=== PATIENT | male | born 1965 | race Caucasian/White ===

== ENCOUNTER → 2018-03-05 15:18 | Outpatient (CLI) | payer BC, MEDICAID ==
--- NOTE | ~2018-03-05 | ST ---
PATIENT:LISA ALFARO MEDICAL RECORD: [id number] SEX: M LOCATION:[facility] ORDER #: ADMISSION DATE: 03/05/18 AGE OF PATIENT: 53 REFERRING PHYSICIAN: INTERPRETING PHYSICIAN: FELIX MESSINA MD DATE OF SERVICE: 03/05/2018 TREADMILL STRESS TEST Baseline ECG is normal. Exercised for 10 minutes on Bakari protocol. Maximum heart rate 165 beats per minute, greater than 85% maximum predicted. No ECG change ischemia. No symptoms of ischemia. Normal blood pressure response to exercise. No arrhythmia is noted. Good exercise tolerance for age. TRANSINT:[id number] Voice Confirmation ID: [id number] DOCUMENT ID: [id number] FELIX MESSINA MD at 1407 CC: [id number] DICTATION DATE: 03/07/18 1321 [facility] [employer]IATE: 03/07/18 1523 DEP CLI 03/05/[address] [id number]
== END | disposition home or self-care (01) ==
LOC: D.HCCARDIO 14:30
DX: R01.1 Cardiac murmur, unspecified (principal)